=== PATIENT | male | born 1970 | race Two or more races ===

== ENCOUNTER → 2017-09-20 | Emergency (ER) | payer OTHER ==
[~2017-09-20] VITALS: Ht 182.9 cm; Wt 112.5 kg
[~2017-09-20] MED LIST: BACTRIM DS TAB1 EACH PO; CELEBREX200MG PO
== END | disposition home or self-care (01) ==
LOC: ER 10:25 → EDBD 12:53 → ER 12:53
DX: M79.641 Pain in right hand (principal); R22.9 Localized swelling, mass and lump, unspecified